=== PATIENT | female | born 1950 | race Caucasian/White ===

== ENCOUNTER 2025-07-11 12:41 | Outpatient (CLI) | payer MEDICARE, OTHER, SELFPAY ==
--- OUTSIDE RECORDS SUMMARY | 2025-07-11 12:54 | XMS_ITS | Clinical Summary ---
Author Organization [facility] Address [facility] [place] [address] Care Team Providers Care Lay Out Maker Name Role Phone Emelyn Lee PA-C Primary Care Provider [phone] Allergies Active Allergy Reactions Criticality Noted Date Comments Sulfa Antibiotics Hives 06/25/2021 Medications losartan 50 MG tablet Take 1 tablet (50 mg total) by mouth daily. Active amLODIPine 10 MG tablet Take 1 tablet (10 mg total) by mouth daily. Active levothyroxine 25 MCG tablet Take 1 tablet (25 mcg total) by mouth every morning. Active cetirizine 10 MG tablet Take 1 tablet (10 mg total) by mouth daily. Active multi vitamin/mineral s tablet Take 1 tablet by mouth daily. Active Ibuprofen 200 MG capsule Take 200 mg by mouth every 6 (six) hours as needed. Active nebivolol 5 MG tablet Take 2 tablets (10 mg total) by mouth daily. Active atorvastatin 20 MG tablet Take 1 tablet (20 mg total) by mouth nightly at bedtime. Active Active Problems Problem Noted Date Diagnosed Date Screen for colon cancer 06/20/2021 Overview (06/20/2021): Added automatically from request for surgery [id number] Encounters Date Type Department Care Team Description 06/29/2025 10:11 AM [employer]IL[employer] OPERATOR HELPER - 06/29/2025 11:59 PM [facility] Hospital Encounter [facility] Cardiopulmonary Services [address] [place] [address] Yahir Pa MD Discharge Disposition: Home or Self Care (Routine Discharge) 06/29/2025 10:10 AM [facility] Hospital Encounter [facility] [address] [place] [address] Yahir Pa MD Discharge Disposition: Home or Self Care (Routine Discharge) 06/29/2025 Orders Only [facility] [address] [place] [address] Yahir Pa MD 06/29/2025 Travel 05/31/2025 10:55 AM [employer] COILER OPERATOR HELPER - 05/31/2025 11:59 PM [employer] COIL[employer] OPERATOR HELPER Hospital Encounter [facility] [address] [place] [address] Yahir Pa MD Discharge Disposition: Home or Self Care (Routine Discharge) 05/31/2025 Orders Only [facility] [address] [place] [address] Yahir Pa MD 05/31/2025 Travel from Last 3 Months Family History Medical History Relation Comments Diabetes Brother Cancer Father Heart Attack Father Heart Disease Mother Breast Cancer Neg Hx Relation Status Comments Brother Father Mother Social History Tobacco Use Types Packs/Day Years Used Date Smoking Tobacco: Never Smokeless Tobacco: Never Tobacco Cessation:Counseling Given: Not Answered Alcohol Use Standard Drinks/Week Comments Not Currently 0 (1 standard drink = 0.6 oz pur e alcohol) holidays PHQ-2 Answer Date Recorded PHQ-2 Score - If the patient scores above 3, please move on to questions 3-9 0 06/15/2021 Comments No Sex and Gender Information Value Date Recorded Sex Assigned at Not on file Legal Sex Female 7:54 PM CDT Gender Identity Not on file Sexual Orientation Not on file Last Filed Vital Signs Vital Sign Reading Time Taken Comments Blood Pressure 115/70 06/16/2023 1:05 PM [employer] COIL[employer] OPERATOR HELPER Pulse 50 06/16/2023 1:05 PM [employer] CO[employer] OPERATOR HELPER Temperature 36.6 C (97.8 F) 06/16/2023 1:05 PM [employer] COILER OPERATOR HELPER Respiratory Rate 16 06/16/2023 1:05 PM [employer] COILER OPERATOR HELPER Oxygen Saturation 99% 06/16/2023 1:05 PM [employer] AND COILER OPERATOR HELPER Inhaled Oxygen Concentration - - Weight 70.8 kg (156 lb) 06/16/2023 11:19 AM [employer] COILER OPERATOR HELPER Height 160 cm (5' 3) 06/16/2023 11:19 AM [employer] COIL[employer] OPERATOR HELPER Body Mass Index 27.63 06/16/2023 11:19 AM [employer] COIL[employer] OPERATOR HELPER Plan of Treatment Health Maintenance Due Date Last Done Comments Hepatitis C 1968 Annual Medicare Wellness Visit 2014 DTaP, Tdap and Td Vaccines (2 - Tdap) 11/08/2021 11/09/2011 RSV Immunization or 60+ Years (1 - 1-dose 75+ series) 2024 COVID-19 Vaccine ( season) 2025 05/30/2022, 10/19/2021, 05/09/2021, Additional history exists Influenza Adult (#1) 2025 05/03/2019, 04/15/2017, 04/03/2016 Zoster Vaccines Completed 03/07/2021, 11/12, 11/21/2015 Pneumococcal Vaccine: 50+ Years Completed 05/30/2021, 05/10/2020, 04/15/2017 Colorectal Cancer Screening Colonoscopy (10 Years) Discontinued 07/04/2021 Dexa Scan (General) Completed 02/10/2025, 4 Hepatitis A Vaccines Aged Out No long er eligible based on patient's age to complete this topic Meningococcal B Vaccine Aged Out No l onger eligible based on patient's age to complete this topic Meningococcal Vaccine Aged Out No britney geraldo eligible based on patient's age to complete this topic RSV Immunizations Under 20 Months Aged Out No longer eligible based on patient's age to complete this topic Medical Devices Implanted Type Area Beam Doffer Device Identifier Shelf Expiration Date Model / Serial / Lot Occular Lens Implanted:Qty: 1 on 05/19/2023 by Ann-Marie Luu MD at [facility] Right: Eye [employer] [id number] 02/07/2026 [id number] / [id number] / Occular Lens Implanted:Qty: 1 on 06/16/2023 by Ann-Marie Luu MD at [facility] Left: Eye [employer] [id number] 09/17/2025 [id number] / [id number] / Procedures Procedure Name Priority Date/Time Associated Diagnosis Comments ECG 12-LEAD Routine 06/29/2025 10:25 AM [employer] COILER OPERATOR HELPER Pre-op testing COMPREHENSIVE METABOLIC PANEL Routine 06/29/2025 10:13 AM [employer] COILER OPERATOR HELPER Pre-operative laboratory examination HC CBC W/O DIFF Routine 05/31/2025 11:05 AM [employer] COILER OPERATOR HELPER Pre-operative laboratory examination C-REACTIVE PROTEIN Routine 05/31/2025 11 :05 AM [employer] COILER OPERATOR HELPER Pre-operative laboratory examination SED RATE, ERYTHROCYTE (ESR) Routine 05/31/2025 11:05 AM [employer] COILER OPERATOR HELPER Pre-operative laboratory examination BONE DENSITY/DEXA Routine 02/10/2025 2:1 5 PM CDT Age-related osteoporosis without current pathological fracture from Last 3 Months or Most Recently Relevant to Health Maintenance Results * ECG 12 lead (06/29/2025 10:25 AM [employer] COILER OPERATOR HELPER) ECG QT 443 [facility] RAD ECG QTC 428 [facility] RAD 06/29/2025 10:2 5 AM [employer] P[employer] AND COILER OPERATOR HELPER Narrative [facility] RAD - 07/01/2025 9:17 AM [employer] P[employer] AND COILER OPERATOR HELPER [facility] Test Date: 2025-06-29 Pat Name: PARUL CURIEL Department: 85 Room: Gender: Female Position Classification Specialist: : 1950 Requested By: YAHIR PA Order Number: [id number] Reading MD: Tomas Guzman Measurements Intervals [place] Rate: 56 P: 50 [place]: 171 QRS: -5 QRSD: 81 T: 48 QT: 443 QTc: 428 Interpretive Statements SINUS BRADYCARDIA VOLTAGE CRITERIA FOR LVH [MEETS CRITERIA IN ONE OF: R(aVL), S(V1), R(V5), R(V5/V6)+S(V1)] NONSPECIFIC T-WAVE ABNORMALITY No previous ECG available for comparison PUNCH AND COILER OPERATOR HELPER Procedure Note Tomas Guzman MD - 07/01/2025 [facility] Test Date: 2025-06-29 Pat Name: PARUL CURIEL Department: 85 Room: Gender: Female Position Classification Specialist: : 1950 Requested By: YAHIR PA Order Number: [id number] Reading MD: Tomas Guzman Measurements Intervals [place] Rate: 56 P: 50 [place]: 171 QRS: -5 QRSD: 81 T: 48 QT: 443 QTc: 428 Interpretive Statements SINUS BRADYCARDIA VOLTAGE CRITERIA FOR LVH [MEETS CRITERIA IN ONE OF: R(aVL), S(V1),R(V5), R(V5/V6)+S(V1)] NONSPECIFIC T-WAVE ABNORMALITY No previous ECG available for comparison PUNCH AND COILER OPERATOR HELPER us Yahir Pa MD ECG ORDERABLES Final Result [facility] RAD * (ABNORMAL) COMPREHENSIVE METABOLIC PANEL (06/29/2025 10:13 AM [employer] P[employer] COILER OPERATOR HELPER) GLUCOSE 106(H) 70 - 99 MG/DL 06/29/2025 10:43 AM [facility] BUN 20(H) 7 - 18 MG/DL 06/29/2025 10:43 AM [facility] CREATININE S/P/B 0.85 0.55 - 1.02 MG/DL 06/29/2025 10:43 AM [facility] SODIUM S/P/B 140 136 - 145 MMOL/L 06/29/2025 10:43 AM [facility] POTASSIUM S/P/B 3.3(L) 3.5 - 5.1 MMOL/L 06/29/2025 10:43 AM [facility] CHLORIDE S/P/B 103 100 - 108 MMOL/L 06/29/2025 10:43 AM [facility] CO2 30.6 21 - 32 MMOL/L 06/29/2025 10:43 AM [facility] CALCIUM S/P/B 8.8 8.5 - 10.1 MG/DL 06/29/2025 10:43 AM [facility] BILIRUBIN TOTAL S/P/B 0.6 0.2 - 1.2 MG/DL 06/29/2025 10:43 AM [facility] TOTAL PROTEIN S/P/B 6.5 6.4 - 8.2 G/DL 06/29/2025 10:43 AM [facility] ALBUMIN S/P/B 3.6 3.4 - 5.0 G/DL 06/29/2025 10:43 AM [facility] AST 29 15 - 37 U/L 06/29/2025 10:43 AM [facility] ALT 32 14 - 55 U/L 06/29/2025 10:43 AM [facility] ALKALINE PHOSPHATASE S/P/B 70 50 - 136 U/L 06/29/2025 10:43 AM [facility] ANION GAP 6.4 5 - 15 MMOL/L 06/29/2025 10:43 AM [facility] BUN CREATININE RATIO 23.5 6 - 26 06/29/2025 10:43 AM [facility] A/G RATIO 1.2 1.0 - 2.0 RATIO 06/29/2025 10:43 AM [facility] GFR ESTIMATE 71(L) >90 ML/MIN/1.7 3 M2 06/29/2025 10:43 AM [facility] Comment: NOTE: eGFR is not calculated for patients <18 years of age. This is an estimated GFR calculation using the new CKD EPI creatinine equation without race and so does not require a correction factor for race. This estimated GFR should not be used for calculating drug doses. BLOOD VENOUS BLOOD SPECIMEN / Unknown 06/29/2025 10:13 AM [employer] P[employer]CH AND COILER OPERATOR HELPER us Yahir Pa MD LABORATORY Final Result Performing Organization Address City/[facility]/ZIP Co de Phone Number [facility] [address] [place] [address], [place] [phone] * SED RATE, ERYTHROCYTE (ESR) (05/31/2025 11:05 AM [employer] P[employer] AND COILER OPERATOR HELPER) ESR 10 0 - 20 MM/HR 05/31/2025 11:34 AM [employer] P[employer]CH AND COILER OPERATOR HELPER [facility] BLOOD VENOUS BLOOD SPECIMEN / Unknown 05/31/2025 11:05 AM [employer] P[employer]CH AND COILER OPERATOR HELPER us Yahir Pa MD LABORATORY Final Result Performing Organization Address [facility] Co de Phone Number [facility] [address] [place] [address], [place] [phone] * (ABNORMAL) CBC, AUTO, NO DIFF (05/31/2025 11:05 AM HO[employer] P[employer]CH AND COILER OPERATOR HELPER) WBC 4.44 4.4 - 11.0 x10'3/uL 05/31/2025 11:20 AM [facility] RBC 4.47(L) 4.50 - 5.10 x10'6/uL 05/31/2025 11:20 AM [facility] HGB 13.2 12.3 - 15.3 G/DL 05/31/2025 11:20 AM [facility] HCT 40.5 35.9 - 44.6 % 05/31/2025 11:20 AM [facility] MCV 90.6 80.0 - 96.0 FL 05/31/2025 11:20 AM HO[employer] P[employer]CH AND COILER OPERATOR HELPER [facility] MCH 29.5 25.3 - 30.9 PG 05/31/2025 11:20 AM HO[employer] P[employer]CH AND COILER OPERATOR HELPER [facility] MCHC 32.6 31.0 - 34.1 G/DL 05/31/2025 11:20 AM [facility] RDW 12.9 12.4 - 15.1 % 05/31/2025 11:20 AM HO[employer] P[employer]CH AND COILER OPERATOR HELPER [facility] PLT 238 151 - 353 x10'3/uL 05/31/2025 11:20 AM [facility] MPV 10.2 9.6 - 12.0 FL 05/31/2025 11:20 AM HO[employer] P[employer]CH AND COILER OPERATOR HELPER [facility] BLOOD VENOUS BLOOD SPECIMEN / Unknown 05/31/2025 11:05 AM HO[employer] P[employer]CH AND COILER OPERATOR HELPER us Yahir Pa MD LABORATORY Final Result [facility] [address] [place] [address], [place] [phone] * C-REACTIVE PROTEIN (05/31/2025 11:05 AM HO[employer] P[employer]CH AND COILER OPERATOR HELPER) C-REACTIVE PROTEIN <0.29 <0.29 mg/dL 05/31/2025 2:18 PM HOOP PUNCH AND COILER OPERATOR HELPER [facility] BLOOD VENOUS BLOOD SPECIMEN / Unknown 05/31/2025 11:05 AM HOOP P[employer]CH AND COILER OPERATOR HELPER us Yahir Pa MD LABORATORY Final Result [facility] [address] [place] [address], [place] [phone] * BONE DENSITY/DEXA (02/10/2025 2:15 PM CDT) Anatomical Region Laterality Modality Bone Bone Density 02/10/2025 2:15 PM CDT Impressions 02/10/2025 2:17 PM CDT IMPRESSION: WHO Classification: osteoporosis. Improved bone mineral density of the lumbar spine and left hip compared to prior study 08/18/2023. Decreased bone mineral density of the right hip compared to prior study. FRAX Score 10-year fracture risk: No score calculated as there is a T score below -2.5, and patient treated for osteoporosis. Ordered By: EMELYN LEE Interpreted By: Chano Kirk MD, 02/10/2025 2:15 PM Narrative 02/10/2025 2:17 PM CDT [id number] [place] [address] Examination: Bone Density Axial Exam Date/Time: 02/10/2025 2:00 PM Reason For Exam: Osteoporosis, on treatment. Comparison DEXA: 08/18/2023. Findings: DEXA bone densitometry The bone mineral density (BMD) was determined by dual-energy x-ray absorptiometry, the results are as follows: AP Lumbar Spine L1 through L4 BMD Patient (GM/SQCM): 0.859 T-Score (Standard deviations from young adult peak bone density): -1.7 (Previous T score: -2.1) Left femoral neck: BMD Patient (GM/SQCM): 0.615 T-Score (Standard deviations from young adult peak bone density): -2.1 (Previous T score: -3.1) Total left femur: BMD Patient (GM/SQCM): 0.646 T-Score (Standard deviations from young adult peak bone density): -2.4 (Previous T score: -2.7) Right femoral neck: BMD Patient (GM/SQCM): 0.505 T-Score (Standard deviations from young adult peak bone density): -3.1 (Previous T score: -2.2) Total right femur: BMD Patient (GM/SQCM): 0.632 T-Score (Standard deviations from young adult peak bone density): -2.5 (Previous T score: -2.2) Recommendations: All patients should ensure an adequate intake of dietary calcium and vitamin D. The NOF recommend adults under the age of 50 need 1000 mg of calcium and 400-800 IU of vitamin D daily. Effective therapy for the prevention and treatment of osteoporosis include biphosphonates. Follow-up: People with diagnosed cases of osteoporosis or at high risk for fracture should have regular bone mineral density test. For patients eligible for Medicare, routine testing is allowed once every 2 years. Testing frequency can be increased to one year for patients who have rapidly progressing disease, those who are receiving or discontinuing medical therapy to restore bone mass, or have additional risk factors. Procedure Note Chano Kirk MD - 02/10/2025 [facility] [address] [place] [address] Examination: Bone Density Axial Exam Date/Time: 02/10/2025 2:00 PM Reason For Exam: Osteoporosis, on treatment. Comparison DEXA: 08/18/2023. Findings: DEXA bone densitometry The bone mineral density (BMD) was determined bydual-energy x-ray absorptiometry, the results are as follows: AP Lumbar Spine L1 through L4 BMD Patient (GM/SQCM): 0.859 T-Score (Standard deviations from young adult peak bonedensity): -1.7 (Previous T score: -2.1) Left femoral neck: BMD Patient (GM/SQCM): 0.615 T-Score (Standard deviations from young adult peak bonedensity): -2.1 (Previous T score: -3.1) Total left femur: BMD Patient (GM/SQCM): 0.646 T-Score (Standard deviations from young adult peak bonedensity): -2.4 (Previous T score: -2.7) Right femoral neck: BMD Patient (GM/SQCM): 0.505 T-Score (Standard deviations from young adult peak bonedensity): -3.1 (Previous T score: -2.2) Total right femur: BMD Patient (GM/SQCM): 0.632 T-Score (Standard deviations from young adult peak bonedensity): -2.5 (Previous T score: -2.2) Recommendations: All patients should ensure an adequate intake of dietary calcium andvitamin D. The NOF recommend adults under the age of 50 need 1000 mg ofcalcium and 400-800 IU of vitamin D daily. Effective therapy for theprevention and treatment of osteoporosis include biphosphonates. Follow-up: People with diagnosed cases of osteoporosis or at high risk for fractureshould have regular bone mineral density test. For patients eligible forMedicare, routine testing is allowed once every 2 years. Testing frequencycan be increased to one year for patients who have rapidly progressingdisease, those who are receiving or discontinuing medical therapy torestore bone mass, or have additional risk factors. IMPRESSION: WHO Classification: osteoporosis. Improved bone mineral density of thelumbar spine and left hip compared to prior study 08/18/2023. Decreased bonemineral density of the right hip compared to prior study. FRAX Score 10-year fracture risk: No score calculated as there is a Tscore below -2.5, and patient treated for osteoporosis. Ordered By: EMELYN LEE Interpreted By: Chano Kirk MD, 02/10/2025 2:15 PM Emelyn Lee PA-C DEXA Final Resu lt from Last 3 Months or Most Recently Relevant to Health Maintenance Insurance MEDICARE [facility] [place] [address] Care Teams Lay Out Maker Relationship Specialty Start Date End Date Emelyn Lee PA-C [address] [place] [address] [address] [place] [address] PCP - General PHYSICIAN STABBER 08/18/23
[2025-07-11 14:06] LABS: Hematocrit 43.9 % (37.0-47.0); Hemoglobin 14.3 g/dL (12.0-15.0); Immature Granulocyte Percent A 0.5 % (0-0.5); Lymphocytes Absolute Auto 1.14 K/mm3 (0.9-3.2); Mean Corpuscular HGB Conc 32.6 g/dl (32-36); Mean Corpuscular Hemoglobin 29.3 pg (26-34); Mean Corpuscular Volume 90.0 fl (80-100); Nucleated Red Blood Cells Absolute Auto 0.000 K/mm3 (0.0-0.012); Nucleated Red Blood Cells Perc 0.0 % (0.0-0.2); Platelet Count Result 227 k/mm3 (150-375); Red Blood Count 4.88 M/mm3 (4.2-5.4); White Blood Count 4.2 K/mm3 (4.5-10.0)
[2025-07-11 14:19] LABS: INR 0.9; Prothrombin Time 12.8 Seconds (11.1-14.7)
[2025-07-11 14:20] LABS: Partial Thromboplastin Time 24.3 Seconds (22.3-36.8)
[2025-07-11 15:15] LABS: MRSA (PCR) NOT DETECTED (NOT DETECTE)
[2025-07-11 17:40] LABS: Hemoglobin A1C 5.5 % (<5.7)
== END 2025-07-11 12:42 | disposition home or self-care (01) ==
LOC: ANHSURGERY 12:46
PROVIDERS: PCP Physician Assistant Medical; Visit Provider Orthopaedic Surgery
DX: M17.11 Unilateral primary osteoarthritis, right knee (principal); Z01.818 Encounter for other preprocedural examination
CPT/HCPCS: 80307; 83036; 85025; 85610; 85730; 87641